=== PATIENT | male | born 2000 | race Caucasian/White ===

== ENCOUNTER 2024-12-20 12:42 | Emergency (ER) | payer BC, SELFPAY ==
[2024-12-20] VITALS (10 sets, daily range): BP systolic 113–172; BP diastolic 60–75; PULSE 71–84; RESP 14–25; TEMP 36.6; O2SAT 96–100
--- NOTE | ~2024-12-20 | XR_ITS ---
Clinical Indication: Chest tightness PA and lateral views of the chest: Comparison: None Findings: The lungs are clear, without evidence of focal consolidation or pleural effusion. Cardiome diastinal silhouette is within normal limits. Bones and soft tissues are unremarkable. Impression: Normal chest. Reviewed, dictated and finalized at location . Impression: Normal chest.
--- NOTE | 2024-12-20 12:44 | ECG_ITS ---
Test Date: 2024-12-20 12:50:42 Measurements Intervals [place] Rate: 75 P: 43 LA: 163 QRS: 33 QRSD: 122 T: 40 QT: 385 QTc: 432 Interpretive Statements SINUS RHYTHM POSSIBLE RIGHT VENTRICULAR CONDUCTION DELAY [RSR (QR) IN V1/V2] No previous ECG available for comparison Electronically Signed On 12-21-2024 15:47:52 CDT by Jeyson Villegas M.D.
[2024-12-20 13:15] LABS: Alanine Aminotransferase 15 U/L (6-50); Albumin Level 4.4 g/dL (3.5-5.1); Alkaline Phosphatase 69 U/L (38-126); Anion Gap 8 mmol/L (4-12); Aspartate Amino Transferase 34 U/L (17-59); Bilirubin,Total 0.5 mg/dL (0.2-1.3); Blood Urea Nitrogen 13 mg/dL (9-20); Calcium 9.1 mg/dL (8.4-10.2); Carbon Dioxide 26 mmol/L (22-30); Chloride 104 mmol/L (98-107); Estimated CRCL calculation 109 ml/min; Estimated Glomerular Filt Rate > 60; Glucose 90 mg/dL (65-110); Lipase 77 U/L (23-300); Potassium 3.9 mmol/L (3.4-5.0); Sodium 138 mmol/L (137-145); Total Protein 7.8 g/dL (6.3-8.2)
[2024-12-20 13:27] LABS: Troponin I < 0.012 ng/mL (0.000-0.034)
[2024-12-20 13:27] LABS: Hematocrit 42.7 % (42.0-52.0); Hemoglobin 13.8 g/dL (14.0-18.0); Immature Granulocyte Percent A 0.4 % (0-0.5); Lymphocytes Absolute Auto 1.93 K/mm3 (0.9-3.2); Mean Corpuscular HGB Conc 32.3 g/dl (32-36); Mean Corpuscular Hemoglobin 27.8 pg (26-34); Mean Corpuscular Volume 85.9 fl (80-100); Nucleated Red Blood Cells Absolute Auto 0.000 K/mm3 (0.0-0.012); Nucleated Red Blood Cells Perc 0.0 % (0.0-0.2); Platelet Count Result 244 k/mm3 (150-375); Red Blood Count 4.97 M/mm3 (4.6-6.20); White Blood Count 8.2 K/mm3 (4.5-10.0)
[2024-12-20 13:40] LABS: INR 1.2; Partial Thromboplastin Time 22.5 Seconds (22.3-36.8); Prothrombin Time 14.8 Seconds (11.1-14.7)
--- NOTE | 2024-12-20 14:34 | ED_ITS ---
HPI - General Adult General Chief complaint: Arrhythmia/Palpitations Stated complaint: palpitations, chest tightness? Time Seen by Provider: 12/20/24 13:33 History of Present Illness HPI narrative: This is a 23-year-old male with history of SVT and anxiety with panic attacks presenting after an episode of palpitations. Patient was on a flow trip this weekend and was drinking a massive amount of alcohol. On his drive home started developed chest tightness, tingling around his hands and mouth. And then came to the ED. His symptoms have since resolved. Related Data Allergies Allergy/AdvReac Type Severity Reaction Status Date / Time No Known Allergies Allergy Verified 12/20/24 13:36 Exam 2 Narrative: APPEARANCE: No apparent distress. Head: atraumatic. EYES: EOMI, NOSE: Atraumatic NECK: Trachea midline RESPIRATORY: No increased rate of breathing clear to auscultation CARDIOVASCULAR: RRR, no peripheral edema ABDOMINAL: Non-distended soft nontender MUSCULOSKELETAl: No obvious deformities NEURO: Alert. Moving 4/4 extremities SKIN:: Warm, dry. Normal color PSYCHIATRIC: Normal affect Course Vital Signs Vital signs: Vital Signs Temperature 97.8 F 12/20/24 12:44 Pulse Rate 83 12/20/24 12:44 Respiratory Rate 16 12/20/24 12:44 Blood Pressure 172/71 H 12/20/24 12:44 Pulse Oximetry 100 12/20/24 12:44 Oxygen Delivery Room Air 12/20/24 12:44 Temperature 97.8 F 12/20/24 12:44 Pulse Rate 78 12/20/24 13:34 Respiratory Rate 20 12/20/24 13:34 Blood Pressure 137/75 12/20/24 13:34 Pulse Oximetry 98 12/20/24 13:34 Oxygen Delivery Room Air 12/20/24 13:34 Medical Decision Making [facility] [place] Narrative Medical decision making narrative: -Course: 23-year-old male with history of SVT and panic attacks presenting after episode palpitations. Symptoms have since resolved. Patient was feeling anxious and tingling on his hands and fingers. This is most consistent with a panic attack. Laboratory studies ordered by nursing protocol within normal limits. Chest x-ray was unremarkable. EKG showed normal sinus rhythm. Patient will be discharged follow-up with cyberathlete as needed. -DDX includes but is not limited to: SVT, atrial fibrillation, holiday heart, anicteric Vital Signs Vital Signs: Vital Signs Temperature 97.8 F 12/20/24 12:44 Pulse Rate 83 12/20/24 12:44 Respiratory Rate 16 12/20/24 12:44 Blood Pressure 172/71 H 12/20/24 12:44 Pulse Oximetry 100 12/20/24 12:44 Oxygen Delivery Room Air 12/20/24 12:44 Temperature 97.8 F 12/20/24 12:44 Pulse Rate 78 12/20/24 13:34 Respiratory Rate 20 12/20/24 13:34 Blood Pressure 137/75 12/20/24 13:34 Pulse Oximetry 98 12/20/24 13:34 Oxygen Delivery Room Air 12/20/24 13:34 Lab Data 12/20/24 13:18 12/20/24 12:56 Labs: Lab Results 12/20/24 12/20/24 Range/Units 12:56 13:18 WBC 8.2 (4.5-10.0) K/mm3 RBC 4.97 (4.6-6.20) M/mm3 Hgb 13.8 L (14.0-18.0) g/dL Hct 42.7 (42.0-52.0) % MCV 85.9 (80-100) fl MCH 27.8 (26-34) pg MCHC 32.3 (32-36) g/dl RDW 13.3 (11.5-14.5) % Plt Count 244 (150-375) k/mm3 MPV 9.6 (7.4-10.4) fl Immature Gran % (Auto) 0.4 (0-0.5) % Neut % (Auto) 69.3 (45.5-73.1) % Lymph % (Auto) 23.5 (18.3-44.2) % [place] % (Auto) 5.4 (2.6-8.5) % Eos % (Auto) 1.2 (0-4.4) % Baso % (Auto) 0.2 (0.2-1.2) % Lymph # (Auto) 1.93 (0.9-3.2) K/mm3 [place] # (Auto) 0.4 (0.1-0.6) K/mm3 Eos # (Auto) 0.1 (0-0.3) K/mm3 Baso # (Auto) 0.0 (0.0-0.1) K/mm3 Abs Immat Gran (auto) 0.03 (0.00-0.031) K/mm3 Absolute Neuts (auto) 5.7 (1.3-6.7) K/mm3 Absolute Nucleated RBC 0.000 (0.0-0.012) K/mm3 Nucleated RBC % 0.0 (0.0-0.2) % PT 14.8 H (11.1-14.7) Seconds INR 1.2 APTT 22.5 (22.3-36.8) Seconds Sodium 138 (137-145) mmol/L Potassium 3.9 (3.4-5.0) mmol/L Chloride 104 (98-107) mmol/L Carbon Dioxide 26 (22-30) mmol/L Anion Gap 8 (4-12) mmol/L BUN 13 (9-20) mg/dL Creatinine 0.95 (0.7-1.3) mg/dL Estim Creat Clear Calc 109 ml/min Estimated GFR > 60 (59 - ) Glucose 90 (65-110) mg/dL Calcium 9.1 (8.4-10.2) mg/dL Total Bilirubin 0.5 (0.2-1.3) mg/dL AST 34 (17-59) U/L ALT 15 (6-50) U/L Alkaline Phosphatase 69 (38-126) U/L Troponin I < 0.012 (0.000-0.034) ng/mL Total Protein 7.8 (6.3-8.2) g/dL Albumin 4.4 (3.5-5.1) g/dL Lipase 77 (23-300) U/L Discharge Plan Discharge Clinical Impression: Palpitations Patient Disposition: Home Condition: Stable Instructions: Antibiotic Form Additional Instructions: You were seen in the emergency department for episode of palpitations. Your laboratory studies EKG chest x-ray were reassuring. This may be due to anxiety. Please follow-up with your cyberathlete for further management. Return if you develop any new or worsening symptoms. Patient Language: Faroese Follow-up/Referrals: PHYSICIAN NOT ON STAFF,NONSTAFF [Primary Care Provider] -
== END 2024-12-20 15:17 | disposition home or self-care (01) ==
PROVIDERS: Emergency Medicine; Emergency Provider Emergency Medicine
DX: R00.2 Palpitations (principal); R94.31 Abnormal electrocardiogram [ECG] [EKG]
CPT/HCPCS: 36415; 71046; 80053; 83690; 84484; 85025; 85610; 85730; 93005; 99284